=== PATIENT | female | born 1960 | race Caucasian/White ===

== ENCOUNTER 2020-01-16 18:21 | Emergency (ER) | payer BC ==
[~2020-01-16] VITALS: Ht 165.1 cm; Wt 111.1 kg
[~2020-01-16 18:21] MED LIST: CIPRO500 MG PO; CLONAZEPAM PO; COUMADIN7.5 MG PO; EFFEXOR75 MG PO; FAMCYCLOVIR 50500 M1 PO; FLAGYL500 M1 PO; GLUCOPHAGE500 MG PO; HYDROCODON-ACE1 EAC7 PO; JANTOVEN7.5 MG PO; LEVAQUIN 750 M750 MG PO; NORCO 5-325 TA1 EACH PO; PERCOCET 5-3251 EACH PO; PREDNISONE50 MG PO; TESSALON PERLE100 MG PO; VALIUM5 MG PO; VENTOLIN HFA 1818 GM INH; VITAMIN D400 UNI1 PO; ZOLOFT100 MG PO
[2020-01-16] MEDS ORDERED: HYDROCORTISONE30 GM TOP (18:49)
[2020-01-16] MEDS ORDERED: ZOFRAN4 MG PO (18:55)
[2020-01-16 19:12] VITALS: BP 121/59
== END 2020-01-16 19:17 | disposition home or self-care (01) ==
LOC: ER 18:21
DX: R11.0 Nausea (principal); R06.02 Shortness of breath; L29.9 Pruritus, unspecified; T36.8X5A Adverse effect of other systemic antibiotics, initial encounter; I10 Essential (primary) hypertension; E11.9 Type 2 diabetes mellitus without complications; J45.909 Unspecified asthma, uncomplicated; Z79.899 Other long term (current) drug therapy; Z88.0 Allergy status to penicillin; Y92.89 Other specified places as the place of occurrence of the external cause